=== PATIENT | female | born 1950 | race Caucasian/White ===

== ENCOUNTER 2020-01-23 14:49 | Outpatient (CLI) | payer OTHER, SELFPAY ==
--- NOTE | ~2020-01-23 | MM_ITS ---
EXAMINATION: MM screening [facility] w carlos alberto HISTORY: Screening mammogram TECHNIQUE: Craniocaudal and mediolateral oblique 3-D tomosynthesis images were obtained and synthetic 2-D images were generated. CAD analysis was submitted and interpreted. COMPARISON: 12/28/2018, 08/21/2017, 10/09/2014 bilateral digital screening mammogram examinations BREAST PARENCHYMAL COMPOSITION: There are scattered areas of fibroglandular density. FINDINGS: Occasional bilateral benign calcifications. I There is no evidence of suspicious mass, calc ification, or architectural distortion to suggest malignancy in either breast. There has been no susp icious interval change. IMPRESSION: 1. No mammographic evidence of malignancy. 2. Recommend routine screening mammography in one year. BI-RADS Category 1: Negative Reviewed, dictated and finalized at location A.
== END 2020-01-23 14:50 | disposition home or self-care (01) ==
LOC: ANHIMG 14:50
PROVIDERS: PCP Family Medicine Adolescent Medicine; Visit Provider Obstetrics & Gynecology Gynecology
DX: Z12.31 Encounter for screening mammogram for malignant neoplasm of breast (principal)
CPT/HCPCS: 77063; 77067

== ENCOUNTER → 2020-05-07 12:56 | Outpatient (CLI) | payer OTHER, SELFPAY ==
--- NOTE | ~2020-05-07 | US_ITS ---
EXAMINATION: US transvaginal DATE: 05/07/2020 13:23 INDICATION: Ovarian cyst. Thickened endometrium. TECHNIQUE: Multiple transabdominal and endovaginal sonographic images of the pelvis were obtained. COMPARISON: 07/28/2017 FINDINGS: The uterus measures 6.3 x 2.8 x 3.5 cm. The endometrial complex measures 6 mm in thickness exclusive of a 0.6 x 1.3 x 1.2 cm fluid collection within the endometrial canal at the fundus. The right ovary measures 6.3 x 4.7 x 6.7 containing a simple appearing x 5.6 x 4.4 x 6.5 cm cyst. Vascular flow seen on color Doppler in the right ovary along the periphery of the cyst. The left ovary is not visualize d. There is no free fluid in the pelvis. IMPRESSION: 1. Chronic mild thickening of the endometrial complex which measures 6 mm exclusive of a small endome trial fluid collection at the fundus. Differential remains endometrial hyperplasia or less likely car cinoma. 2. 6.5 cm right ovarian cyst. Reviewed, dictated and finalized at location A. IMPRESSION: 1. Chronic mild thickening of the endometrial complex which measures 6 mm exclu sive of a small endometrial fluid collection at the fundus. Differential remain s endometrial hyperplasia or less likely carcinoma. 2. 6.5 cm right ovarian cyst.
== END ==
PROVIDERS: PCP Family Medicine Adolescent Medicine; Visit Provider Obstetrics & Gynecology Gynecology
DX: N83.201 Unspecified ovarian cyst, right side (principal); R93.89 Abnormal findings on diagnostic imaging of other specified body structures
CPT/HCPCS: 76830

== ENCOUNTER → 2020-12-14 09:57 | Outpatient (CLI) | payer OTHER, SELFPAY ==
--- NOTE | ~2020-12-14 | XR_ITS ---
EXAMINATION: XR shoulder RT min 2V DATE: 12/14/2020 10:22 INDICATION: Right shoulder pain TECHNIQUE: AP internally and externally rotated, AP oblique externally rotated, axillary and transsca pular Y views of the right shoulder were obtained. COMPARISON: None FINDINGS: Normal alignment. No fracture. Glenohumeral joint is normal. Mild acromioclavicular osteoarthritis. Soft tissues are unremarkable. Visualized portions of the lungs are clear. IMPRESSION: Mild right acromioclavicular osteoarthritis. Reviewed, dictated and finalized at location B.
== END ==
PROVIDERS: PCP Family Medicine Adolescent Medicine; Visit Provider Family Medicine Adolescent Medicine
DX: M19.011 Primary osteoarthritis, right shoulder (principal)
CPT/HCPCS: 73030

== ENCOUNTER → 2021-07-24 11:12 | Outpatient (CLI) | payer OTHER, SELFPAY ==
--- NOTE | ~2021-07-24 | MM_ITS ---
EXAMINATION: MM screening [facility] BI w carlos alberto HISTORY: Screening mammogram TECHNIQUE: Craniocaudal and mediolateral oblique 3-D tomosynthesis images were obtained and synthetic 2-D images were generated. CAD analysis was submitted and interpreted. COMPARISON: 01/23/2020, 12/18/2018 BREAST PARENCHYMAL COMPOSITION: There are scattered areas of fibroglandular density. FINDINGS: There is no evidence of suspicious mass, calcification, or architectural distortion to sugg est malignancy in either breast. There has been no suspicious interval change. IMPRESSION: 1. No mammographic evidence of malignancy. 2. Recommend routine screening mammography in one year. BI-RADS Category 1: Negative Reviewed, dictated and finalized at location A. 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
== END ==
PROVIDERS: PCP Family Medicine Adolescent Medicine; Visit Provider Obstetrics & Gynecology Gynecology
DX: Z12.31 Encounter for screening mammogram for malignant neoplasm of breast (principal)
CPT/HCPCS: 77063; 77067

== ENCOUNTER → 2022-03-30 10:57 | Outpatient (CLI) | payer OTHER, SELFPAY ==
--- NOTE | ~2022-03-30 | XR_ITS ---
XR hip LT min 2V DATE: 03/30/2022 11:21 INDICATION: Left hip pain TECHNIQUE: AP and lateral views COMPARISON: None FINDINGS: Surgical clips overlie the left inguinal area. No fracture, dislocation, avascular necrosis or bone destruction of the left hip. Left hip joint spac e appears relatively well preserved. Normal alignment at the pubic symphysis and left sacroiliac join t. IMPRESSION: No significant abnormality of left hip Probable left inguinal hernia repair Reviewed, dictated and finalized at location B.
== END ==
PROVIDERS: PCP Family Medicine Adolescent Medicine; Visit Provider Family Medicine Adolescent Medicine
DX: M25.552 Pain in left hip (principal)
CPT/HCPCS: 73502

== ENCOUNTER → 2022-06-17 10:56 | Outpatient (CLI) | payer OTHER, SELFPAY ==
--- NOTE | ~2022-06-17 | US_ITS ---
EXAMINATION: US transvaginal DATE: 06/17/2022 11:31 INDICATION: Follow-up ovarian cysts Comparison:Ultrasound dated 05/07/2020 TECHNIQUE: Multiple transabdominal and endovaginal sonographic images of the pelvis performed. FINDINGS: The uterus measures 6 x 2.7 x 3.7 cm. The endometrial complex measures 12 mm. There is flui d in the endometrium. The right ovary measures 5.5 x 4.8 x 6.1 cm and the left ovary is not visualized. There is a 5.2 x 4. 5 x 5.4 cm simple cyst of the right ovary. There is no free fluid in the pelvis. There are no abnormal masses seen on either side. IMPRESSION: 1. Thickened endomtrial complex. The differential diagnosis includes endometrial hyperplasia, polyp a nd carcinoma. Biopsy is recommended. 2: Simple cyst of the right ovary measuring 5.4 cm. Reviewed, dictated and finalized at location A. IMPRESSION: 1. Thickened endomtrial complex. The differential diagnosis includes endometria l hyperplasia, polyp and carcinoma. Biopsy is recommended. 2: Simple cyst of the right ovary measuring 5.4 cm.
== END ==
PROVIDERS: PCP Family Medicine Adolescent Medicine; Visit Provider Obstetrics & Gynecology Gynecology
DX: N83.201 Unspecified ovarian cyst, right side (principal); R93.89 Abnormal findings on diagnostic imaging of other specified body structures
CPT/HCPCS: 76830

== ENCOUNTER 2022-08-15 00:03 | Day surgery (SDC) | payer OTHER, SELFPAY ==
[2022-08-03 13:41] VITALS: BMI 27.1
--- NOTE | 2022-08-03 14:03 | PC.NURSE ---
Report to the Outpatient Waiting Room, entrance under the green pavilion located off [facility], at time _0600_ on date _08/15/22_. Planned Procedure Time: _0730_. Time changes happen often and if your time is changed the preop area will call you the afternoon before. - You and your visitor will be asked to self-screen and do not enter if you have any COVID symptoms. - Only one visitor is requested with a max of two and NO children visitors are allowed at this time. - The patient visitor may be requested to leave or wait in car when not with patient due to distancing restrictions. - A mask is optional within the hospital. Patients may have clear liquids (water, carbonated beverages, clear teas, apple juice) until 3 hours prior to surgery (0430 AM) with a maximum of 20 ounces. - No food from midnight until time of surgery - Infants may have breast milk until 4 hours before surgery, formula 6 hours prior to surgery. - Children will be allowed to drink immediately following surgery. If applicable, please bring a bottle or sippy cup to assist with drinking. Juice, water, soda, and popsicles are readily available. For infants on formula, please bring formula the day of surgery. Pacifiers are allowed. Take the following medications with a SIP of water the morning of surgery: NONE Medications to discontinue per physician N/A Date to take last dose Please no make-up, nail georgian, hairspray, perfume, deodorant, or body powder the day of surgery. No jewelry (including any body piercings) or valuables the day of surgery, leave them at home. Please take a shower or bath the night before, or the morning of, surgery with an antibacterial soap. Wear comfortable, loose fitting clothing. Children are encouraged to wear pajamas. - Jewelry must be removed prior to entering the operating room. Rings and piercings that are not removed may be cut off. - The hospital will not accept responsibility for valuables. - Please leave all valuables, including medications, at home the day of surgery. If you are going home after surgery, a licensed furniture delivery driver must drive you home. - NO public transportation without another adult if you receive anesthesia. - We recommend that an adult stay with you for 24 hours following discharge. - We also recommend that you do not drive, make important decision, drink alcoholic beverages, or take any drugs that were not prescribed by your health care provider for at least 24 hours after your discharge time. For Pediatric surgeries, we recommend two adults accompany the child home. Follow any additional instructions given to you from your surgeon. If you or anyone in your household have experienced Covid symptoms in the past week, please notify your surgeon or the nurse liaison at the phone number below for possible testing. Telephone instructions given to ____PT and asked if any additional questions and then verbalized understanding. Patient advised to call surgeon office or pre surgery nurse liaison [phone] if any additional questions.
[2022-08-15 06:05] VITALS: BP 144/70; PULSE 76; RESP 18; TEMP 36.7; O2SAT 94
[2022-08-15] MEDS: LACTATED RINGERS 1,000 ML 30 ML IV CONT (06:35)
[2022-08-15] MEDS: ACETAMINOPHEN 500 MG TABLET 1000 MG PO (06:41)
--- NOTE | 2022-08-15 06:56 | WPDANESEPPF ---
Anes - Initial Pre Proc Eval Procedure: Operation Date: 08/15/22 07:30 Proposed Procedures p Hysteroscopy with Dilation and Curettage - Marcella Chandler MD Date/Time: 08/15/22 06:56 Surgeon: Marcella Chandler MD Pre Op Diagnosis: Thickened Endometrium Patient Data Age: 71 Gender: F Height: 1.61 m Weight: 66.6 kg Last Vital Signs Temp 36.7 C 08/15/22 06:05 Pulse 76 08/15/22 06:05 Resp 18 08/15/22 06:05 BP 144/70 H 08/15/22 06:05 Pulse Ox 94 08/15/22 06:05 O2 Del Method Room Air 08/15/22 06:05 Allergies Allergy/AdvReac Type Severity Reaction Status Date / Time prednisone Allergy Severe HYPER Verified 08/15/22 06:05 FEELING codeine Allergy Unknown NAUSEA AND Verified 08/15/22 06:05 VOMITING procaine Allergy Unknown HEART RACES Verified 08/15/22 06:05 misoprostol AdvReac Severe Diarrhea Verified 08/15/22 06:06 ???EPINEPHRINE IN LOCALS Allergy Severe HEART Uncoded 08/15/22 06:05 RACING ANTIHISTAMINE Allergy Unknown HEART RACES Uncoded 08/15/22 06:05 Home Medications Medication Instructions Recorded Confirmed Type lorazepam 1 mg tablet 1 mg PO HS 08/03/22 08/15/22 History Patient hx anesthesia problems: post op nausea/vomiting Family hx anesthesia problems: none Results Review: All pre-operative results and documents have been reviewed as part of the pre-operative evaluation. FORMERLY [facility] Past Medical History Medical History Broken wrist Gallbladder attack GERD (gastroesophageal reflux disease) 2 para 2 Tinnitus Vertigo Family History Family History Father Bone cancer Mother Parkinson disease Grandparent Acute myocardial infarction Cerebrovascular accident Heart disease Other Breast cancer Social History Social History Smoking packs per day: 4 Smoking cigarettes per day: 80.0 Years smoked: 25 Smoking pack-years: 100.00 Smoking status: Former smoker Tobacco type: cigarettes Second hand tobacco smoke exposure: No Alcohol intake: never Substance use: never Substance use type: does not use Living arrangements: alone Gender identity (if verbalized by the patient): Female Sexual Orientation (if Verbalized by the Patient): Straight or Heterosexual Spiritual care concerns: No Agree to blood products: Yes Anes - Eval Final PreProcedure Day of Procedure 08/15/22 06:56 Patient weight: overweight Heart: regular rate and rhythm Lungs: decreased breath sounds Airway: Mallampati scale class II Neurological: alert and oriented Last oral intake: >/= 8 hours ASA classification: III Emergent: no Anesthetic plan: proceed Anesthesia type and monitoring: general GIVS and standard monitoring Results Review: All pre-operative results and documents have been reviewed as part of the pre-operative evaluation. Informed Consent: The patient's anesthetic plan and its attendant risks and benefits were discussed with the patient/family/POA. Questions were solicited and answers provided to the satisfaction of the patient/family/POA.
--- NOTE | 2022-08-15 07:15 | PM.HPGS ---
History of Present Illness History of Present Illness Consent: Risks, benefits, and alternatives have been discussed and questions answered. Patient agrees to proceed with procedure. Chief complaint: Thickened Endometrium Narrative: Francesca Fernandez is a 71 year old female Who had a follow-up ultrasound for a simple ovarian cyst and her endometrium was noted to be thickened at 12mm. It was recommended to proceed with D&C hysteroscopy. Due to prior history of inability to enter the cavity the patient was Cytotec for 1 week prior to the procedure. The patient did not tolerate the 1000mcg dose and was decreased [id number] per night. Risks of the procedure including infection, bleeding, perforation, and inability to enter the cavity are reviewed. Patient voiced understanding agrees to proceed. Review of Systems Review of Systems: not repeated day of surgery; patient states no changes in status Musculoskeletal: Musculoskeletal: Reports back pain, Reports arthralgias and Reports neck pain PMFSH Past Medical History Medical History (Updated 08/15/22 @ 07:19 by Marcella Chandler MD) Broken wrist Depression Gallbladder attack GERD (gastroesophageal reflux disease) 2 para 2 x2 Tinnitus Vertigo Surgical History Surgical History (Updated 08/15/22 @ 07:18 by Marcella Chandler MD) History of hysteroscopy failed attempt 2016 due to severe stenosis of the internal os Status post LEEP (loop electrosurgical excision procedure) of cervix 2007 Family History Family History Father Bone cancer Mother Parkinson disease Grandparent Acute myocardial infarction Cerebrovascular accident Heart disease Other Breast cancer Social History Social History Smoking packs per day: 4 Smoking cigarettes per day: 80.0 Years smoked: 25 Smoking pack-years: 100.00 Smoking status: Former smoker Tobacco type: cigarettes Second hand tobacco smoke exposure: No Alcohol intake: never Substance use: never Substance use type: does not use Living arrangements: alone Gender identity (if verbalized by the patient): Female Sexual Orientation (if Verbalized by the Patient): Straight or Heterosexual Spiritual care concerns: No Agree to blood products: Yes Meds Home Medications and Allergies Home Medications Medication Instructions Recorded Confirmed Type lorazepam 1 mg tablet 1 mg PO HS 08/03/22 08/15/22 History Allergies Allergy/AdvReac Type Severity Reaction Status Date / Time prednisone Allergy Severe HYPER Verified 08/15/22 06:05 FEELING codeine Allergy Unknown NAUSEA AND Verified 08/15/22 06:05 VOMITING procaine Allergy Unknown HEART RACES Verified 08/15/22 06:05 misoprostol AdvReac Severe Diarrhea Verified 08/15/22 06:06 ???EPINEPHRINE IN LOCALS Allergy Severe HEART Uncoded 08/15/22 06:05 RACING ANTIHISTAMINE Allergy Unknown HEART RACES Uncoded 08/15/22 06:05 Vital Signs Vital Signs - 24 hr 08/15/22 06:05 Temperature 98.1 F Pulse Rate 76 Respiratory Rate 18 Blood Pressure 144/70 H Pulse Oximetry 94 Oxygen Delivery Room Air Exam Const: General: healthy appearing and alert Orientation/consciousness: patient oriented x3 Resp: Effort & Inspection: normal respiratory effort Auscultation: clear to auscultation bilaterally Cardio: Rate: regular rate Rhythm: regular rhythm GI: GI Palp: Yes Soft to palpation, No Tenderness to palpation present (GI) and No Palpable mass present : External Female Exam: normal external appearance Speculum Exam - Vagina: normal appearance of the vagina and normal vaginal discharge Speculum Exam - Cervix: normal appearance of the cervix Bimanual exam- vagina & uterus: uterine size normal and consistency normal Bimanual Exam- Adnexa, other: normal adnexae and No adnexal tenderness Neuro: Genera
--- NOTE | 2022-08-15 07:19 | WPDHPUPDATE1 ---
History and Physical Update Update Date/Time: 08/15/22 07:19 History and Physical has been reviewed, including an updated exam of the patient. There are NO changes in the patient's condition. Risks, benefits, and alternatives have been discussed and questions answered. Patient agrees to proceed with procedure.
[2022-08-15] MEDS: LIDOCAINE HCL 1% PF 30 ML VIAL 10 ML INFILTRATE (07:28)
[2022-08-15 08:00] VITALS: BP 107/65; PULSE 67; RESP 14; O2SAT 96
--- NOTE | 2022-08-15 08:03 | W.PM.PROC2 ---
Procedure Note - Detailed Date of Procedure 08/15/22 Pre-op Diagnosis Thickened Endometrium distorted cervical anatomy Post-op Diagnosis Same Procedure Performed failed hysteroscopy Surgeon Marcella Cahndler MD Anesthesia MAC and Local Findings cervix flush with vagina and pulled up and to the left with a distorted cervical os Description of Procedure The patient was taken to the operating room and placed under anesthesia in the dorsal lithotomy position. The patient was prepped and draped in the usual sterile fashion.The bivalve speculum was placed in the vagina. The cervix is pulled up into the patient's left with a possible cervical opening visualized. With difficulty the anterior cervix is grasped with a tenaculum. The os Finders are initially used and the pass fairly easy into the visible cervical opening. The cervix is serially dilated to an 8 Hegar. The uterus is sounded to 12cm. The hysteroscope was placed and it is noted to not be in the uterine cavity. It is likely within the uterine wall with a perforation. No perforation is visible however the fluid is unbalanced at 700 and and 60 out so a perforation is assumed. Backing the camera out slowly several times does not reveal the proper uterine cavity entrance. The procedure was stopped at this point. The patient was awakened from anesthesia and taken to recovery in stable condition. Estimated Blood Loss 5 Drains No Packing No Pathology None sent Complications Other complications ( Inability to enter cavity; likely uterine perforation) Condition Stable Disposition PACU
[2022-08-15 08:30] VITALS: BP 106/62; PULSE 65; RESP 16; O2SAT 94
[2022-08-15 08:50] VITALS: BP 137/62; PULSE 62
== END 2022-08-15 09:05 | disposition home or self-care (01) ==
PROVIDERS: PCP Family Medicine Adolescent Medicine; Visit Provider Obstetrics & Gynecology Gynecology
PROC: 0U5B8ZZ Destruction of Endometrium, Via Natural or Artificial Opening Endoscopic (ICD-10-PCS; CPT 58563; principal; 2022-08-15 07:30)
DX: R93.89 Abnormal findings on diagnostic imaging of other specified body structures (principal); N88.8 Other specified noninflammatory disorders of cervix uteri; N99.71 Accidental puncture and laceration of a genitourinary system organ or structure during a genitourinary system procedure; Z87.891 Personal history of nicotine dependence
CPT/HCPCS: 58558; A9270; J2405; J2704; J3010; J7030; J7120

== ENCOUNTER 2022-09-16 11:11 | Emergency (ER) | payer OTHER, SELFPAY ==
--- NOTE | ~2022-09-16 | CT_ITS ---
EXAMINATION: CT abdomen pelvis wo con DATE: 09/16/2022 12:46 INDICATION: Right flank pain. Hematuria. TECHNIQUE: Computed tomography (CT) of the abdomen and pelvis was performed without intravenous contr ast. Automated exposure control and iterative reconstruction technique were employed. The dose-length product was 434.78 mGy-cm. COMPARISON: Pelvis ultrasound 06/17/2022, 05/07/2020 FINDINGS: The visualized portions of the lung bases demonstrate mild atelectasis. There is mild scarr ing in paraspinal right lower lobe. No pleural effusion. The heart size is normal. There are coronary artery calcifications. No pericardial effusion. There is diffuse hepatic steatosis. The liver, gallb ladder, spleen, pancreas, adrenal glands, and kidneys are normal. There is a 3 mm stone in mid right ureter. There is a 5.8 cm cyst in the right ovary. There is diverticulosis of the colon without evide nce of diverticulitis. There are no dilated loops of bowel. The appendix is normal. There are no path ologically enlarged lymph nodes. There is no free intraperitoneal fluid. There is a left inguinal her min containing fat. There are surgical clips in the inguinal regions bilaterally. There is severe low er lumbar spondylosis. There is mild thoracic spondylosis. IMPRESSION: 1. 3 mm stone in mid right ureter. No hydronephrosis. 2. Chronic 5.8 cm cyst in right ovary, likely benign. Pelvis ultrasound is recommended in one year. Reviewed, dictated and finalized at location A. 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 3 mm stone in mid right ureter. No hydronephrosis. 2. Chronic 5.8 cm cyst in right ovary, likely benign. Pelvis ultrasound is michelle mmended in one year.
[2022-09-16 11:30] VITALS: BP 159/72; PULSE 79; RESP 14; TEMP 36.3; O2SAT 100
[2022-09-16 12:02] LABS: Add Urine Microscopic? YES; Appearance Urine Clear (Clear); Bilirubin Urine 1+ (Negative); Blood Urine 3+ (Negative); Color Urine Yellow (Yellow); Glucose Urine UA Negative (Negative); Ketones Urine Negative (Negative); Leukocyte Esterase Ur Trace LEU/UL (Negative); Nitrate Urine Negative (Negative); Protein Urine 1+ mg/dL (Negative); Specific Grav Ur >= 1.030 (1.001-1.035); Urobilinogen Urine 0.2 mg/dL (<2.0); pH Urine 5.5 (5.0-9.0)
[2022-09-16 12:10] LABS: Mucus Urine Rare /lpf; RBC Urine >75 /hpf (0-2); Squamous Epithelial Cell Urine Few /hpf (Few)
--- NOTE | 2022-09-16 12:42 | ED.FEMALEGU ---
HPI - Female Genitourinary General Chief complaint: Urogenital-Female Stated complaint: back pain with hematuria Time Seen by Provider: 09/16/22 12:02 History of Present Illness HPI Narrative: Patient is a 71-year-old female here for evaluation of an episode of low back pain today. Patient states the pain was concentrated in her right flank, was severe in nature and lasted several seconds before resolving without intervention. Pain was associated with diaphoresis and nausea. She was seen in urgent care facility for this pain, was told that she had blood in her urine and was referred here for kidney stone work-up. Patient states since then, her pain is completely resolved and she is back at her baseline. She states that her urine appears dark still but has improved from this morning. No fevers, vomiting, abdominal pain, chest pain, history of kidney stones. Related Data Home Medications Medication Instructions Recorded Confirmed lorazepam 1 mg tablet 1 mg PO HS 08/03/22 08/15/22 Allergies Allergy/AdvReac Type Severity Reaction Status Date / Time prednisone Allergy Severe HYPER Verified 09/16/22 11:58 FEELING codeine Allergy Unknown NAUSEA AND Verified 09/16/22 11:58 VOMITING procaine Allergy Unknown HEART RACES Verified 09/16/22 11:58 sulfamethoxazole Allergy Rash Verified 09/16/22 11:59 [From ] trimethoprim [From ] Allergy Rash Verified 09/16/22 11:59 misoprostol AdvReac Severe Diarrhea Verified 09/16/22 11:58 ???EPINEPHRINE IN LOCALS Allergy Severe HEART Uncoded 08/15/22 06:05 RACING ANTIHISTAMINE Allergy Unknown HEART RACES Uncoded 08/15/22 06:05 Review of Systems Review of Systems: Gen: Denies fevers or chills Eyes: Denies eye pain or visual change ENT: Denies congestion Respiratory: Denies shortness of breath or cough CV: Denies chest pain or palpitations GI: Denies abdominal pain nausea, emesis or diarrhea denies burning, urgency, frequency or hematuria Musculoskeletal: Reports back pain, resolved. Neuro: Denies numbness, tingling, weakness or focal weakness Skin: Denies rash Except as documented, all other systems reviewed and negative PMFSH Past Medical History Medical History Broken wrist Depression Gallbladder attack GERD (gastroesophageal reflux disease) 2 para 2 x2 Tinnitus Vertigo Surgical History Surgical History History of hysteroscopy failed attempt 2016 due to severe stenosis of the internal os Status post LEEP (loop electrosurgical excision procedure) of cervix 2007 Family History Family History Father Bone cancer Mother Parkinson disease Grandparent Acute myocardial infarction Cerebrovascular accident Heart disease Other Breast cancer Social History Social History Smoking packs per day: 4 Smoking cigarettes per day: 80.0 Years smoked: 25 Smoking pack-years: 100.00 Smoking status: Former smoker Tobacco type: cigarettes Second hand tobacco smoke exposure: No Alcohol intake: never Substance use: never Substance use type: does not use Gender identity (if verbalized by the patient): Female Sexual Orientation (if Verbalized by the Patient): Straight or Heterosexual Spiritual care concerns: No Agree to blood products: Yes Exam Narrative: APPEARANCE: Well appearing, no pain in distress, well-nourished. Head: Normocephalic and atraumatic. EYES: PERRLA/EOMI, conjunctivae clear NOSE: No nasal drainage EARS: External ear normal in appearance THROAT: Oropharynx is clear. Mucous membranes are moist. NECK: Supple. No adenopathy, no masses. RESPIRATORY: Airway patent, respirations nonlabored. Clear to auscultation bilaterally, no rales, rhonchi, wheezing. CARDIOVASC
[2022-09-16 13:11] LABS: Basophils Percent Auto 0.5 % (0.2-1.2); Hemoglobin 14.1 g/dL (12.0-15.0); Immature Granulocyte Absolute 0.03 K/mm3 (0.00-0.031); Immature Granulocyte Percent A 0.4 % (0-0.5); Lymphocytes Absolute Auto 1.32 K/mm3 (0.9-3.2); Lymphocytes Percent Auto 15.5 % (18.3-44.2); Mean Corpuscular HGB Conc 32.8 g/dl (32-36); Mean Corpuscular Hemoglobin 28.1 pg (26-34); Mean Corpuscular Volume 85.8 fl (80-100); Mean Platelet Volume 10.4 fl (7.4-10.4); Monocytes Absolute Auto 0.5 K/mm3 (0.1-0.6); Monocytes Percent Auto 5.4 % (2.6-8.5); Neutrophils Absolute Auto 6.7 K/mm3 (1.3-6.7); Neutrophils Percent Auto 78.2 % (45.5-73.1); Platelet Count Result 170 k/mm3 (150-375); Red Blood Count 5.01 M/mm3 (4.2-5.4); Red Cell Distribution Width 13.2 % (11.5-14.5); White Blood Count 8.5 K/mm3 (4.5-10.0)
[2022-09-16 13:30] LABS: Anion Gap 6 mmol/L (8-16); Blood Urea Nitrogen 12 mg/dL (7-17); Carbon Dioxide 29 mmol/L (22-30); Chloride 107 mmol/L (98-107); Estimated Glomerular Filt Rate > 60; Glucose 111 mg/dL (65-110); Potassium 4.4 mmol/L (3.4-5.0); Sodium 142 mmol/L (137-145)
[2022-09-16 13:50] VITALS: BP 144/70; PULSE 76; RESP 16; TEMP 36.7; O2SAT 100
== END 2022-09-16 13:52 | disposition home or self-care (01) ==
PROVIDERS: Emergency Medicine; Emergency Provider Physician Assistant; PCP Family Medicine Adolescent Medicine
DX: N20.1 Calculus of ureter (principal); K21.9 Gastro-esophageal reflux disease without esophagitis; F32.A Depression, unspecified; Z87.891 Personal history of nicotine dependence; N83.201 Unspecified ovarian cyst, right side
CPT/HCPCS: 36415; 74176; 80048; 81001; 85025; 99284

== ENCOUNTER → 2023-04-15 08:48 | Outpatient (CLI) | payer OTHER, SELFPAY ==
--- NOTE | ~2023-04-15 | XR_ITS ---
Right Knee Technique: AP, lateral, and sunrise views were obtained. Clinical History: Pain Findings: No fracture or dislocation is seen. Osseous alignment is anatomic. There is degenerative sp urring at the medial joint line and intercondylar notch. There is minimal patellar spurring. Soft tis sues are unremarkable. No joint effusion is seen. Impression: Mild degenerative change, as above. Reviewed, dictated and finalized at location M. Impression: Mild degenerative change, as above.
== END ==
PROVIDERS: PCP Family Medicine Adolescent Medicine; Visit Provider Family Medicine Adolescent Medicine
DX: M25.561 Pain in right knee (principal)
CPT/HCPCS: 73562

== ENCOUNTER 2024-04-15 13:59 | Outpatient (CLI) | payer OTHER, SELFPAY ==
--- NOTE | ~2024-04-15 | MM_ITS ---
EXAMINATION: MM screening [facility] w carlos alberto HISTORY: Screening TECHNIQUE: Craniocaudal and mediolateral oblique 3-D tomosynthesis images were obtained and synthetic 2-D images were generated. CAD analysis was submitted and interpreted. COMPARISON: Comparison to multiple prior studies sequentially, with oldest reviewed study dated 10/09. BREAST PARENCHYMAL COMPOSITION: There are scattered areas of fibroglandular density. FINDINGS: There is no evidence of suspicious mass, calcification, or architectural distortion to sugg est malignancy in either breast. There has been no suspicious interval change. IMPRESSION: 1. No mammographic evidence of malignancy. 2. Recommend routine screening mammography in one year. BI-RADS Category 1: Negative Reviewed, dictated and finalized at location B.
== END 2024-04-15 14:00 ==
PROVIDERS: PCP Family Medicine Adolescent Medicine; Visit Provider Obstetrics & Gynecology Gynecology
DX: Z12.31 Encounter for screening mammogram for malignant neoplasm of breast (principal)
CPT/HCPCS: 77063; 77067

== ENCOUNTER 2024-10-28 08:55 | Outpatient (CLI) | payer OTHER, SELFPAY ==
--- NOTE | ~2024-10-28 | XR_ITS ---
EXAMINATION: XR chest 2V DATE: 10/28/2024 09:06 INDICATION: Cough TECHNIQUE: frontal view of the chest was obtained. COMPARISON: Chest radiograph dated 01/16/2009 FINDINGS: The lungs are clear with no focal airspace opacities, pulmonary edema, pleural effusion or pneumothor ax. The cardiomediastinal silhouette is normal. Mild thoracic spondylosis. IMPRESSION: 1. No acute cardiopulmonary disease. Reviewed, dictated and finalized at location A. R PROP PLAYER
== END 2024-10-28 08:56 | disposition home or self-care (01) ==
PROVIDERS: PCP Family Medicine Adolescent Medicine; Visit Provider Family Medicine Adolescent Medicine
DX: R05.9 Cough, unspecified (principal)
CPT/HCPCS: 71046

== ENCOUNTER 2025-01-22 13:32 | Outpatient (CLI) | payer OTHER, SELFPAY ==
--- OUTSIDE RECORDS SUMMARY | 2025-01-22 13:42 | XMS_ITS | Clinical Summary ---
Author Organization [email or web address] Address [address] [place] [address] Care Team Providers Care Restaurant Service Manager Name Role Phone Donnie Schaffer MD Primary Care Provider + Dylan Frias MD Unavailable [phone] Source Comments [facility],non-owned Affiliates and Associated Physician Practices is amultiple site organization consisting of ambulatory clinics and hospital sitesin [place], [place], [place] and [place]. This disclosure is being madepursuant to the Care Everywhere program and may not contain all information available regarding this patient. Last updated 18.[email or web address] Allergies Active Allergy Reactions Criticality Noted Date Comments Alkylamines Shortness of Breath,Palpitations ,Other,Headache High 07/22/2022 otc decongestants and antihistamines Diphenhydramine Palpitations 11/03/2022 Codeine Palpitations Low 07/22/2022 Latex Rash,Itching Medium 10/17/2022 Added based on information entered during case entry, please review and add reactions, type, and severity as needed Prednisone Other,Dizziness,Hea dache,Palpitations, Shortness of Breath,Swelling High 07/22/2022 Pseudoephedrine Base Other,Headache,Palp itations,Shortness of Breath High 07/22/2022 Sulfamethoxazole W-Trimethoprim Urticaria Medium 07/22/2022 Medications * Be aware that medications may not be up to date on this document. Alwaysverify current medications with the patient. LORazepam (Ativan) 1 MG tablet Take 1 (one) tablet by mouth 2 times daily as needed anxiety 2 Active ondansetron, disintegrating, (Zofran ODT) 4 MG tablet Take 1 (one) tablet by mouth every 6 hours as needed for Nausea/Vomiting Allow tablet to dissolve on the tongue 10 tablet 3 Active Additional Information Patient not taking.Reported on 12/14/2022 oxyCODONE, immediate release, (Roxicodone) 5 MG tabletIndicatio ns:Postoperativ e state Take 1 (one) tablet by mouth every 6 hours as needed for Pain 15 tablet 3 Active Additional Information Patient not taking.Reported on 12/14/2022 polyethylene glycol 3350 (Miralax) 17 GM/SCOOP powder Take 17 (seventeen) g by mouth once daily As needed for constipation. 289 g 1 3 Active Additional Information Patient not taking.Reported on 12/14/2022 ibuprofen (Motrin) 600 MG tablet Take 1 (one) tablet by mouth every 6 hours as needed for Pain 30 tablet 1 3 Active acetaminophen (Tylenol) 500 MG capsule Take 2 (two) capsules by mouth every 8 hours as needed for Fever or Pain 30 capsule 1 3 Active Additional Information Patient taking differently:1,000 mg OralPRN, Fever, Pain, Reported on 12/14/2022 Active Problems Problem Noted Date Diagnosed Date Thickened endometrium 11/03/2022 Postoperative state 11/03/2022 Family History Medical History Relation Name Comments Cancer Father Cancer - Breast Paternal Aunt Relation Name Status Comments Father Paternal Aunt Alive Social History Tobacco Use Types Packs/Day Years Used Date Smoking Tobacco: Former Cigarettes Smokeless Tobacco: Never Alcohol Use Standard Drinks/Week Comments Never 0 (1 standard drink = 0.6 oz pur e alcohol) Overall Financial Resource Strain (CARDIA) Answe r Date Recorded How hard is it for you to pa y for the very basics like food, housing, medical care, and heating? Not hard at all 11/03/2022 [facility] Occupat ional [facility] - Occupational Stress Questionnaire Answer Date Recorded Do you feel stress - tense, restless, nervous, or anxious, or unable to sleep at night because your mind is troubled all the time - these days? Not at all 11/03/2022 Hunger Vital Sign Answer Date Recorded Within the past 12 months, y ou worried that your food would run out before you got the money to buy more. Never true 11/03/19 Within the past 12 months, t he food you bought just didn't last and you didn't have money to get more. Never true 11/03/2022 PRAPARE - Transportation Answer Date Re corded In the past 12 months, has l ack of transportation kept you from medical appointments or from getting medications? No 10/13 In the past 12 months, has l ack of transportation kept you from meetings, work, or from getting things needed for daily living? No 11/03/2022 Housing Stability Vital Sign Answer Jay Jay e Recorded In the last 12 months, was t here a time when you were not able to pay the mortgage or rent on time? No 11/03/2022 In the last 12 months, how many places have you lived? 1 11/03/2022 In the last 12 months, was t here a time when you did not have a steady place to sleep or slept in a snf (including now)? No 11/03/2022 Comments Unknown Sex and Gender Information Value Date Recorded Sex Assigned at Not on file Legal Sex Female 9:56 AM ANESTHESIOLOGY CRNA Gender Identity Not on file Sexual Orientation Not on file Last Filed Vital Signs Vital Sign Reading Time Taken Comments Blood Pressure 150/90 12/14/2022 9:01 AM CDT Pulse 78 12/14/2022 9:01 AM CDT Temperature 36.9 C (98.4 F) 11/05/2022 11:00 AM ANESTHESIOLOGY CRNA Respiratory Rate 18 11/05/2022 11:00 AM ANESTHESIOLOGY CRNA Oxygen Saturation 96% 12/14/2022 9:01 AM CDT Inhaled Oxygen Concentration - - Weight 68.3 kg (150 lb 9.6 oz) 12/14/2022 9:01 A M CDT Height 160 cm (5' 3 ) 12/14/2022 9:01 AM CDT Body Mass Index 26.68 12/14/2022 9:01 AM CDT Plan of Treatment Health Maintenance Due Date Last Done Comments BONE DENSITY TESTING 1950 COLOGUARD (AGES 45-75) - COL ON CA SCREENING 1952 COLON MONITORING 1952 COLONOSCOPY - COLON CA SCREENING 1952 CT COLONOGRAPHY - COLON CA SCREENING 1952 Colorectal Cancer Screening 1952 FIT - COLON CA SCREENING 1952 FLEX SIG - COLON CA SCREENING 1952 LIPID TESTING 1952 MAMMOGRAM 1950 MEDICARE AWV 12 MONTHS 1952 HEPATITIS C SCREENING 11/09/1970 DTAP/TDAP/TD VACCINES (1 - Tdap) 11/14/1971 PNEUMOCOCCAL VACCINE 50+ (1 of 1 - PCV) 2002 ZOSTER VACCINE (1 of 2) 2002 COVID-19 VACCINE (1 - 2023-2 5 season) 2024 DEPRESSION SCREENING 09/11/2024 INFLUENZA VACCINE (Season Ended) 2025 SCREENING FOR DIABETES 11/04/2025 11/04/2022 Respiratory Syncytial Virus (RSV) Vaccine Pt: or over 60 yrs (1 - 1-dose 75+ series) 11/14/2027 HEPATITIS B VACCINE Aged Out No longe r eligible based on patient's age to complete this topic HIB VACCINE Aged Out No longer eligi ble based on patient's age to complete this topic HPV VACCINE Aged Out No longer eligi ble based on patient's age to complete this topic MENINGOCOCCAL (Group B) VACC INE SHARED DECISION-MAKING Aged Out No longer eligibl e based on patient's age to complete this topic MENINGOCOCCAL GROUPS A/C/Y/W VACCINE Aged Out No longer eligible b ased on patient's age to complete this topic Procedures Procedure Name Priority Date/Time Associated Diagnosis Comments RENAL FUNCTION PANEL AM Draw 11/04/2022 3:07 AM ANESTHESIOLOGY CRNA Postoperative state from Last 3 Months or Most Recently Relevant to Health Maintenance Results * (ABNORMAL) RENAL FUNCTION PANEL (11/04/2022 3:07 AM ANESTHESIOLOGY CRNA) Glucose 114(H) 70 - 105 mg/dL 11/04/2022 4:08 AM ANESTHESIOLOGY CRNA [facility] Sodium 137 136 - 145 mmol/L 11/04/2022 4:08 AM ANESTHESIOLOGY CRNA [facility] Potassium 3.6 3.5 - 5.1 mmol/L 11/04/2022 4:08 AM ANESTHESIOLOGY CRNA [facility] Chloride 104 98 - 107 mmol/L 11/04/2022 4:[address] [facility] CO2 26 23 - 31 mmol/L 11/04/2022 4:[address] [facility] Calcium 8.3(L) 8.4 - 10.4 mg/dL 11/04/2022 4:[address] [facility] Anion Gap 7(L) 8 - 18 mmol/L 11/04/2022 4:[address] [facility] BUN 8(L) 9.8 - 20.1 mg/dL 11/04/2022 4:[address] [facility] Creatinine 0.79 0.57 - 1.11 mg/dL 11/04/2022 4:[address] [facility] Albumin 3.6 3.2 - 4.6 gm/dL 11/04/2022 4:[address] [facility] Phosphorus 3.4 2.3 - 4.7 mg/dL 11/04/2022 4:[address] [facility] eGFR by CKD-EPI 81(L) >=90 mL/min/1.7 3 m2 11/04/2022 4:[address] [facility] Blood BLOOD SPECIMEN / Unknown Lab Venipuncture / Unknown 11/04/2022 3:07 AM ANESTHESIOLOGY CRNA 11/04/2022 3:29 AM [facility] us Dylan Frias MD LAB - CHEMISTRY ORDERABLES Fin al Result Performing Organization Address [facility]/State/[facility] Co de Phone Number [facility] [address] [place] [address] [phone] from Last 3 Months or Most Recently Relevant to Health Maintenance Insurance [facility] MEDICARE [facility] MEDICARE Care Teams Restaurant Service Manager Relationship Specialty Start Date End Date Donnie Schaffer MD [address] [place] [id number] PCP - General 08/30/22 Dylan Frias MD [address] [place] [address] [phone] BODY MAN Oncology 09/20/22
--- OUTSIDE RECORDS SUMMARY | 2025-01-22 13:42 | XMS_ITS | Clinical Summary ---
Author Organization [facility] Address [address] [place] [id number] Care Team Providers Care Aircraft Cabin Cleaner Name Role Phone Donnie Schaffer MD Primary Care Provider [phone] Allergies Active Allergy Reactions Criticality Noted Date Comments Antihistamines, Chlorpheniramine-Type Anxiety,Chest pressure,Headache,Palpita tions,Shortness of Breath High 07/22/2022 Codeine Palpitations Low 07/22/2022 Prednisone Anxiety,Chest pressure,Dizziness,Headac he,Palpitations,Shakiness ,Shortness of Breath,Swelling High 07/22/2022 Pseudoephedrine Hcl Anxiety,Chest pressure,Headache,Palpita tions,Shortness of Breath High 07/22/2022 Sulfamethoxazole-Trimethopri m Hives Medium 07/22/2022 Medications LORazepam (ATIVAN) 1 MG tablet Take 1 mg by mouth 2 (two) times daily as needed. FOR ANXIETY 05/26/2022 Active ibuprofen (MOTRIN) 200 MG tablet Take 200 mg by mouth every 6 (six) hours as needed for Pain. Active Family History Medical History Relation Comments Cancer Father bone cancer Relation Status Comments Father Social History Tobacco Use Types Packs/Day Years Used Date Smoking Tobacco: Former Cigarettes 4 15 0 09/11/1964 - 09/11/1979 Smokeless Tobacco: Never Tobacco Cessation:Counseling Given: No Comments:Never Smoked Alcohol Use Standard Drinks/Week Comments Never 0 (1 standard drink = 0.6 oz pur e alcohol) NA PHQ-2 Answer Date Recorded PHQ-2 Score - If the patient scores above 3, please move on to questions 3-9 0 07/22/2022 Comments No Sex and Gender Information Value Date Recorded Sex Assigned at Not on file Legal Sex Female 5:00 PM CDT Gender Identity Not on file Sexual Orientation Not on file Last Filed Vital Signs Vital Sign Reading Time Taken Comments Blood Pressure 173/87 07/22/2022 8:05 AM ENVIRONMENTAL SERVICES SUPERVISOR Pulse 70 07/22/2022 7:52 AM ENVIRONMENTAL SERVICES SUPERVISOR Temperature 36.4 C (97.6 F) 07/22/2022 7:52 AM ENVIRONMENTAL SERVICES SUPERVISOR Respiratory Rate 18 07/22/2022 7:52 AM ENVIRONMENTAL SERVICES SUPERVISOR Oxygen Saturation 97% 07/22/2022 7:52 AM ENVIRONMENTAL SERVICES SUPERVISOR Inhaled Oxygen Concentration - - Weight 70 kg (154 lb 6.4 oz) 07/22/2022 7:52 AM ENVIRONMENTAL SERVICES SUPERVISOR Height 161.3 cm (5' 3.5 ) 07/22/2022 7:52 AM ENVIRONMENTAL SERVICES SUPERVISOR Body Mass Index 26.92 07/22/2022 7:52 AM ENVIRONMENTAL SERVICES SUPERVISOR Plan of Treatment Health Maintenance Due Date Last Done Comments Colorectal Cancer Screening Colonoscopy (10 Years) 1952 Hepatitis C 1970 DTaP, Tdap and Td Vaccines ( 1 - Tdap) 11/14/1971 Mammogram Screening 1992 Pneumococcal Vaccine: 50+ Years (1 of 1 - PCV) 2002 Zoster Vaccines (1 of 2) 2002 Annual Medicare Wellness Visit 2017 Dexa Scan (General) 2017 COVID-19 Vaccine (3 - 2023-2 5 season) 2024 11/21/2020, 10/24/2020 RSV Immunization or 60+ Years (1 - 1-dose 75+ series) 11/14/2027 Meningococcal B Vaccine Aged Out No l onger eligible based on patient's age to complete this topic Meningococcal Vaccine Aged Out No vargas robert eligible based on patient's age to complete this topic RSV Immunizations Under 20 Months Aged Out No longer eligible b ased on patient's age to complete this topic Insurance [employer] Care Teams Aircraft Cabin Cleaner Relationship Specialty Start Date End Date Donnie Schaffer MD [address] [address] PCP - General 05/19/16
--- OUTSIDE RECORDS SUMMARY | 2025-01-22 13:42 | XMS_ITS | Clinical Summary ---
Author Organization [facility] Care Team Providers Care Boarder Hand Name Role Phone Unavailable Primary Care Provider Unavailabl e Social History Tobacco Use Types Packs/Day Years Used Date Smoking Tobacco: Never Assessed Comments Unknown Sex and Gender Information Value Date Recorded Sex Assigned at Not on file Legal Sex Female 8:01 PM CDT Gender Identity Not on file Sexual Orientation Not on file Plan of Treatment Health Maintenance Due Date Last Done Comments DEXA Bone Density 1950 Hepatitis C Virus (HCV) Screening 1950 TdaP Immunization 1952 Colonoscopy 1997 Colorectal Cancer Screening 1997 Cologuard 2002 Immunochemical Fecal Occult Blood 2002 Mammogram 2002 Pneumococcal Immunization (5 0+ years) (1 of 1 - PCV) 2002 Zoster Immunization (1 of 2) 2002 Influenza Immunization (#1) 2024 SARS-COV-2 Immunization (2023- season) 2024 11/21/2020, 10/24/2020 Respiratory Syncytial Virus (RSV) Immunization (Adult) (1 - 1-dose 75+ series) 11/14/2027 Hepatitis B Immunization Aged Out No longer eligible based on patient's age to complete this topic Meningococcal Immunization (ACWY) Aged Out No longer eligible b ased on patient's age to complete this topic Rotavirus Immunization Aged Out No lo nger eligible based on patient's age to complete this topic
--- OUTSIDE RECORDS SUMMARY | 2025-01-22 13:42 | XMS_ITS | Continuity of Care Document ---
Author Organization [facility] Address [address] [place] [address] [address] [place] [address] Phone Care Team Providers Care Planning Director Name Role Phone Norris OD, Marlon Unavailable Unavailable Advance Directives Directive Yes / No Effective Date File Name No Information Encounters Encounter Description Practice Location Reason(s) For Visit Diagnoses Date Provider Providers Copied on Encounter [facility], [address], [place], [place], [id number], [place] tel:[phone] [facility] No Information Oct-2 3-200 1 Norris OD Marlon. [address] , [address], [place], [address], [place]. tel:[phone] Family History Family Member Type Diagnosis Age At Onset No Information Payers Payer name Insurance type Covered democrat ID Authoriza tion(s) No Information Social History Type Description Quantity Date Captured Comments Sex Female Smoking Status No Information Chief Complaint And Reason For Visit No Information Reason For Referral Reason For Referral No Information History Of Present Illness Encounter Date Complaint History Of Prese nt Illness No Information Functional Status Date Functional Assessmen t No Information Instructions Date Instruction Additional Infor mation No Information Assessments Type Assessment Date No Information Patient Care Teams Name Effective Dates (start - stop) Status Members No Information
--- NOTE | 2025-01-22 14:45 | NEURO_ITS ---
Impression: # Complains of numbness of left hand. # Evolving left Carpal Tunnel Syndrome. # Left ulnar neuropathy across the elbow. # Normal needle/EMG exam. Nerve Conduction Studies Anti Sensory Summary Table Stim Site NR Peak (ms) P-T Amp (µV) Site1 Site2 Delta-P (ms) Dist (cm) Arya (m/s) Left Median Anti Sensory (2-3nd Digit) Wrist 3.3 12.9 Wrist 2-3nd Digit 3.3 14.0 42 Wrist 3.3 26.2 Wrist 2-3nd Digit 3.3 14.0 42 Left Radial Anti Sensory (Base 1st Digit) Wrist 2.0 24.9 Wrist Base 1st Digit 2.0 0.0 Left Ulnar Anti Sensory (5th Digit) Wrist 2.7 26.0 Wrist 5th Digit 2.7 14.0 52 Motor Summary Table Stim Site NR Onset (ms) O-P Amp (mV) Site1 Site2 Delta-0 (ms) Dist (cm) Arya (m/s) Left Median Motor (Abd Poll Brev) Wrist 4.0 2.8 Elbow Wrist 5.1 30.0 59 Elbow 9.1 3.2 Left Ulnar Motor (Abd Dig Minimi) Wrist 2.5 4.6 A Elbow Wrist 5.8 29.0 50 A Elbow 8.3 1.8 B Elbow Wrist 3.8 22.0 58 B Elbow 6.3 1.5 F Wave Studies NR F-Lat (ms) L-R F-Lat (ms) Left Median (Mrkrs) (Abd Poll Brev) 29.61 Left Ulnar (Mrkrs) (Abd Dig Min) 30.75 EMG Side Muscle Nerve Root Ins Act Fibs Amp Dur Recrt Comment Left 1stDorInt Ulnar C8-T1 Nml Nml Nml Nml Nml Left Ext Indicis Radial (Post Int) C7-8 Nml Nml Nml Nml Nml Left Ext Digitorum Radial (Post Int) C7-8 Nml Nml Nml Nml Nml Left BrachioRad Radial C5-6 Nml Nml Nml Nml Nml Left PronatorTeres Median C6-7 Nml Nml Nml Nml Nml Left Abd Poll Brev Median C8-T1 Nml Nml Nml Nml Nml Left ABD Dig Min Ulnar C8-T1 Nml Nml Nml Nml Nml Left FlexPolLong Median (Ant Int) C7-8 Nml Nml Nml Nml Nml Left Abd Poll Long Radial (Post Int) C7-8 Nml Nml Nml Nml Nml MTDD
== END 2025-01-22 13:33 | disposition home or self-care (01) ==
PROVIDERS: PCP Family Medicine Adolescent Medicine; Visit Provider Nurse Practitioner Family
DX: G56.02 Carpal tunnel syndrome, left upper limb (principal); G56.22 Lesion of ulnar nerve, left upper limb
CPT/HCPCS: 95886; 95909

== ENCOUNTER 2025-05-07 15:39 | Outpatient (CLI) | payer OTHER, SELFPAY ==
--- NOTE | ~2025-05-07 | XR_ITS ---
EXAMINATION: XR hip RT min 2V DATE: 05/07/2025 16:08 INDICATION: Worsening pain in the right hip TECHNIQUE: 2 images of the right hip were obtained. COMPARISON: None. FINDINGS: Mild degenerative change about the right hip. No fracture. No dislocation. Bone mineralization is within normal limits. No sclerotic or destructive bone lesion identified. There is bowel gas and stool projecting over the pelvis which limits evaluation. Clips project about the right inferior pubic ramus. IMPRESSION: 1. No fracture. No dislocation. 2. Mild degenerative change about the right hip. If symptoms persist or worsen, consider a short-term follow-up study or additional imaging for further assessment. Reviewed, dictated and finalized at location Q. IMPRESSION: 1. No fracture. No dislocation. 2. Mild degenerative change about the right hip. If symptoms persist or worsen, consider a short-term follow-up study or additio nal imaging for further assessment.
== END 2025-05-07 15:40 | disposition home or self-care (01) ==
LOC: MICIMG 15:40
PROVIDERS: PCP Family Medicine Adolescent Medicine; Visit Provider Family Medicine Adolescent Medicine
DX: M16.11 Unilateral primary osteoarthritis, right hip (principal)
CPT/HCPCS: 73502